=== PATIENT | female | born 1970 | race Caucasian/White ===

== ENCOUNTER 2023-08-07 16:20 | Emergency (ER) | payer OTHER, MEDICARE ==
[~2023-08-07] VITALS: Ht 170.2 cm; Wt 67.6 kg
[~2023-08-07 16:20] MED LIST: BACLOFEN20 MG PO; CYMBALTA60 MG PO; DIAZEPAM10 MG PO; NEURONTIN400 MG PO; PERCOCET 10-321 EACH PO; VITAMIN B-12500 MCG PO; VITAMIN D3125 MC2 PO; WELLBUTRIN SR100 MG PO
--- OUTSIDE RECORDS SUMMARY | 2023-08-07 16:22 | XMS ---
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 E.D. VISIT COUNT (12 MO.) 1 [facility] TOTAL 1 NOTE: Visits indicate total known visits. ED/UCC VISIT TRACKING (12 MO.) 08/07/2023 16:20 [facility] OR TYPE: Emergency COMPLAINT: - ABDOMINAL PAIN INPATIENT VISIT TRACKING (12 MO.) No inpatient visits to display in this time frame [email or web address]
[2023-08-07 16:58] LABS: BASOPHILS 0.4 % (0-2); EOSINOPHILS 0.4 % (0-6); HEMOGLOBIN 14.6 g/dL (12.0-18.0); LYMPHOCYTES 26.3 % (24-44); MCH 31.8 (27-36); MCHC 33.1 g/dl (30-36); NEUTROPHILS 67.9 % (39-80); PLATELET COUNT 283 K/uL (140-440); RBC 4.58 M/ul (4.3-5.7); RDW 14.4 (10.5-15.0)
[2023-08-07 17:05] LABS: BILIRUBIN, URINE NEGATIVE (negative); BLOOD/HGB, URINE NEGATIVE (Negative); KETONE, URINE NEGATIVE (Negative); LEUK ESTERASE, URINE NEGATIVE (negative); NITRITE, URINE NEGATIVE (negative); PH, URINE 5.5 (5-7)
[2023-08-07 17:06] LABS: ALBUMIN 4.5 g/dL (3.4-5.0); ALBUMIN/GLOBULIN RATIO 1.5 (1.1-2.4); ANION GAP 9.6 (7-21); BILIRUBIN, TOTAL 0.4 ng/dL (0.2-1.0); BUN/CREATININE RATIO 9.21 (6.0-28.6); CALCIUM 9.3 mg/dL (8.5-10.1); CREATININE, SERUM 0.76 mg/dL (0.55-1.02); POTASSIUM 3.6 mmol/L (3.5-5.1); PROTEIN, TOTAL 7.5 g/dL (6.4-8.2)
[2023-08-07 17:16] LABS: COLLECTION TYPE, URINE CLEAN CATCH
[2023-08-07] MEDS ORDERED: LOMOTIL TABLET1 EACH PO (18:13)
[2023-08-07 18:44] VITALS: BP 130/70
[2023-08-09 12:13] LABS: C. DIFF TOXIN B GENE TCDB,PCR Not Detected (())
== END 2023-08-07 18:43 | disposition home or self-care (01) ==
LOC: ED 16:20
PROVIDERS: Emergency Medicine
DX: K52.9 Noninfective gastroenteritis and colitis, unspecified (principal); Z88.0 Allergy status to penicillin; Z79.899 Other long term (current) drug therapy
CPT/HCPCS: 36415; 80053; 81003; 83690; 83735; 85025; 87493; 96360; 99284-25; J7030